=== PATIENT | male | born 1970 | race African-American/Black ===

== ENCOUNTER 2020-06-22 08:17 | Emergency (ER) | payer OTHER ==
[~2020-06-22] VITALS: Ht 188 cm; Wt 88.6 kg
[2020-06-22 08:21] VITALS: Ht 188 cm; Wt 88.6 kg
[2020-06-22 08:27] VITALS: BP 136/99
[2020-06-22 08:49] LABS: BASOPHILS 0.4 % (0-2); EOSINOPHILS 2.5 % (0-7); HEMATOCRIT 36.9 % (42.0-54.0); HEMOGLOBIN 12.2 g/dL (13.5-17.5); IMMATURE GRANULOCYTES 0.2 % (0-5); LYMPHOCYTE ABS# 2.57 10x3/uL (1.32-3.57); LYMPHOCYTES 30.4 % (15-50); MCH 30.4 pg (26.0-34.0); MCHC 33.1 g/dL (31.0-37.0); MEAN PLATELET VOLUME 8.9 fL (7.4-10.4); MONOCYTES 8.4 % (2-11); NEUTROPHIL ABS# 4.91 10x3/uL (1.78-5.38); NEUTROPHILS 58.1 % (40-80); PLATELET COUNT 262 10x3/uL (130-400); RBC 4.01 10x6/uL (4.20-6.10); WBC 8.5 10x3/uL (4.8-10.8)
[2020-06-22 08:59] LABS: ANION GAP 13.6 mmol/L (8-16); CALCIUM 8.8 mg/dL (8.5-10.1); CARBON DIOXIDE 25.2 mmol/L (21.0-32.0); CREATININE - SERUM 1.2 mg/dL (0.6-1.3); POTASSIUM - SERUM 3.8 mmol/L (3.5-5.1)
[2020-06-22 09:06] LABS: ALBUMIN 3.4 g/dL (3.4-5.0); BILIRUBIN - TOTAL 0.34 mg/dL (0.2-1.3); PROTEIN - SERUM 7.2 g/dL (6.4-8.2)
[2020-06-22] MEDS ORDERED: STERAPRED DS 1010 MG PO (10:08)
== END 2020-06-22 10:18 | disposition home or self-care (01) ==
LOC: D.ER 08:17
PROVIDERS: Family Medicine
DX: T78.3XXA Angioneurotic edema, initial encounter (principal); T78.1XXA Other adverse food reactions, not elsewhere classified, initial encounter